=== PATIENT | male | born 1985 | race Caucasian/White ===

== ENCOUNTER 2023-09-24 11:13 | Emergency (ER) | payer OTHER, SELFPAY ==
[2023-09-24 11:16] VITALS: BP 93/45
[2023-09-24 13:14] LABS: % Basophils 0.6 % (0-2); % Eosinophils 4.5 % (0-6); % Immature Granulocytes 0.3 % (0-0.5); % Lymphocytes 26.6 % (20.5-51.1); % Monocytes 5.1 % (1.7-9.3); % Neutrophils 62.9 % (42.2-75.2); Absolute Eosinophils 0.2 10^3/uL (0-0.7); Absolute Lymphocytes 0.9 10^3/uL (1.2-3.4); Absolute Monocytes 0.2 10^3/uL (0.1-0.6); Absolute Neutrophils 2.2 10^3/uL (1.4-6.5); Hematocrit 34.9 % (39.0-52.0); Hemoglobin 12.4 g/dL (13.0-18.0); Mean Corp Hgb Conc. 35.5 g/dL (33.0-37.0); Mean Corpuscular Hgb 30.8 pg (27.0-31.0); Mean Corpuscular Volume 86.8 fL (80.0-94.0); Mean Platelet Volume 9.4 fL (7.4-10.4); Nucleated Red Blood Cells % 0 % (-); Platelet Count 188 10^3/uL (130-400); Red Blood Cell Count 4.02 10^6/uL (4.70-6.10); Red Cell Dist. Width 12.9 % (11.5-14.5); White Blood Cell Count 3.5 10^3/uL (4.8-10.8)
[2023-09-24 13:23] LABS: COVID-19 Antigen Negative (Negative)
[2023-09-24 13:47] LABS: ALT (SGPT) 59 U/L (0-50); AST (SGOT) 74 U/L (17-59); Albumin 3.9 g/dl (3.5-5.0); Alkaline Phosphatase 76 U/L (38-126); Amphetamines Negative (Negative); Barbiturates Negative (Negative); Benzodiazepines Negative (Negative); Blood Urea Nitrogen 12 mg/dl (9-20); Buprenorphine Negative (Negative); Calcium 9.3 mg/dl (8.4-10.2); Carbon Dioxide 25 mmol/L (22-30); Chloride 107 mmol/L (98-107); Cocaine Negative (Negative); Glucose 128 mg/dl (70-99); Marijuana Positive (Negative); Methadone Negative (Negative); Methamphetamines Negative (Negative); Opiates Negative (Negative); Phencyclidine Negative (Negative); Potassium 3.8 mmol/L (3.5-5.1); Sodium 144 mmol/L (135-145); Total Bilirubin 0.3 mg/dl (0.2-1.3); Tricyclic Antidepressants Negative (Negative); eGFR > 60.00
[2023-09-24 14:02] LABS: Alcohol 169 mg/dl
[2023-09-24 14:12] LABS: Blood Urea Nitrogen 12 mg/dl (9-20); Calcium 8.7 mg/dl (8.4-10.2); Carbon Dioxide 25 mmol/L (22-30); Chloride 111 mmol/L (98-107); Glucose 103 mg/dl (70-99); Potassium 3.5 mmol/L (3.5-5.1); Sodium 143 mmol/L (135-145); eGFR > 60.00
--- NOTE | 2023-09-24 14:14 | ED.GENMED ---
History of Present Illness
General
Chief Complaint: Alcohol Problem
Source: patient
Exam Limitations: none
Time Seen by Provider: 09/24/23 12:02
Travel History
Have you had any contact with someone who has COVID-19?: No
Do you have any symptoms of coronavirus? Fever > 100 degrees, chills, cough, shortness of breath, sore throat, loss of taste or smell, muscle aches, or headache?: No
History of Present Illness
History of Present Illness:
38-year-old male with history of alcoholism presents for help with his alcohol. The patient states he has been under some stress and began drinking again. He drinks vodka. His last drink was about 2 hours ago. Patient denies any other medical
complaints
Past History
Past History
ED Past Medical History: Psychiatric and Other (Chronic alcoholic)
ED Past Surgical History: None
Social History
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
Drug: None
Personal: Single
Living: homeless
Employment: Not employed
Family History
Family History: Other
Phy Exam
Physical Exam
Physical Exam:
CONSTITUTIONAL Vital signs reviewed, Patient alert and oriented to person, place and time. Well-appearing
HEAD atraumatic, normocephalic.
EYES eyelids normal to inspection, Extraocular muscles intact, Conjunctiva normal, Sclera normal.
NECK normal range of motion, Trachea midline, no jugular venous distention.
RESP no respiratory distress
BACK No obvious deformities
UPPER EXTREMITY Gross Range of motion normal, gross motor strength normal
LOWER EXTREMITY Gross range of motion normal, Gross motor strength normal
NEURO Speech normal, No focal motor deficits include, [place] coma scale 15, Memory normal, Cranial Nerves intact to screening exam.
SKIN Skin warm, dry, and normal in color.
PSYCHIATRIC Patient oriented to person place and time, Normal affect.
Scores
Withdrawal Assessment of Alcohol
Withdrawal Assessment Completed?: Not applicable
Course
Orders/Labs/Results
Orders:
Orders
09/24/23 12:31
0.9% Sodium Chloride 1000 ml [Nss] 1,000 ml IV BOLUS
09/24/23 12:57
Alcohol Urgent
COVID-19 Antigen Urgent
Source: Nasal Swab
Complete Blood Count/With Diff Urgent
Comprehensive Metabolic Panel Urgent
Urine Drug Abuse Screen Urgent
Date Specimen was Collected: 09/24/23
Time Specimen was Collected: 12:31
09/24/23 13:42
BMP [Basic Metabolic Panel] Urgent
Abnormal Lab Results
09/24/23 09/24/23
12:57 13:42
WBC 3.5 L 10^3/uL
(4.8-10.8)
RBC 4.02 L 10^6/uL
(4.70-6.10)
Hgb 12.4 L g/dL
(13.0-18.0)
Hct 34.9 L %
(39.0-52.0)
Absolute Lymphs (auto) 0.9 L 10^3/uL
(1.2-3.4)
Chloride 111 H mmol/L
(98-107)
Creatinine 0.6 L mg/dL
(0.7-1.3)
Glucose 128 H mg/dl 103 H mg/dl
(70-99) (70-99)
AST 74 H U/L
(17-59)
ALT 59 H U/L
(0-50)
Total Protein 6.0 L g/dl
(6.3-8.2)
U Marijuana (THC) Screen Positive H
(Negative)
09/24/23 12:57
09/24/23 13:42
Vital Signs
Initial and Last Documented VS:
Initial Vital Signs
Temp Pulse Resp BP Pulse Ox
98.4 F 90 16 93/45 96
09/24/23 11:16 09/24/23 11:16 09/24/23 11:16 09/24/23 11:16 09/24/23 11:16
Last Documented Vital Signs
Temp Pulse Resp BP Pulse Ox
98.4 F 72 16 93/45 98
09/24/23 11:16 09/24/23 14:02 09/24/23 11:16 09/24/23 11:16 09/24/23 14:02
MDM/Problems Addressed
MDM/Problems Addressed:
Chronic alcoholism, acute alcohol intoxication
*Pulse Oximetry
Patient hypoxic: no
*Critical Care Note
Total Time (30-74mins, 75-104mins- exclusive of procedures): Not Applicable
Data Reviewed
Source: patient
Prescriptions/Medications Considered But Not Given:
Considered Ativan patient does not appear in withdrawal
Patient Management
Discussion with other providers: Other (Case discussed with Amanda boyd and they are able to find placement for him with [facility])
ED Attending Note
-
Portions of this chart may have been created with voice recognition software.� Occasional wrong word or��sound alike� substitutions may have occurred due to the inherent limitations of voice recognition software.
Discharge Plan
Departure
Patient Disposition: Acute Rehab Facility
Date of Disposition: 09/24/23
Time of Disposition: 14:18
Discharge Problem:
Acute alcoholism
Instructions: Drug Misuse and Addiction (DC)
Referrals:
NONE,* [Family Provider] -
Interventions
Interventions:
*Risk Screen - Suicide Last Done: 09/24/23 11:16
*General Assessment Last Done: 09/24/23 11:16
*Neglect/Abuse Screening Last Done: 09/24/23 11:16
ED- Fall Risk Assessment Last Done: 09/24/23 14:59
*ED COVID-19 Vaccine History Last Done: 09/24/23 11:16
*Nursing Disposition Last Done: 09/24/23 14:59
ED- Neurological Assessment Last Done: 09/24/23 14:59
ED-Psychological Assessment Last Done: 09/24/23 14:59
Discharge Date and Time
Discharge Date/Time: 09/24/23 15:01
Print Language: MAORI
[2023-09-24] MEDS: NSS 1000 IV (14:29)
== END 2023-09-24 15:01 ==
LOC: EMR 11:13
PROVIDERS: EMERGENCY PHYSICIAN Emergency Medicine
DX: F10.229 Alcohol dependence with intoxication, unspecified (principal)
CPT/HCPCS: 99285; 96360; 80048; 80053; 80306; 82077; 85025; 87811

== ENCOUNTER 2023-09-24 18:31 | Emergency (ER) | payer OTHER, SELFPAY ==
[2023-09-24 18:35] VITALS: BP 107/50
[2023-09-24 20:07] VITALS: BP 106/55
--- NOTE | 2023-09-24 20:15 | ED.GENMED ---
History of Present Illness
General
Chief Complaint: Alcohol Problem
Source: patient
Exam Limitations: none
Time Seen by Provider: 09/24/23 20:13
Travel History
Have you had any contact with someone who has COVID-19?: No
Do you have any symptoms of coronavirus? Fever > 100 degrees, chills, cough, shortness of breath, sore throat, loss of taste or smell, muscle aches, or headache?: No
History of Present Illness
History of Present Illness:
See MDM
Past History
Past History
ED Past Medical History: Psychiatric and Other (Chronic alcoholic)
ED Past Surgical History: None
Social History
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
Drug: None
Personal: Single
Living: homeless
Employment: Not employed
Family History
Family History: Other
Phy Exam
Physical Exam
Physical Exam:
See MDM
Scores
Withdrawal Assessment of Alcohol
Withdrawal Assessment Completed?: Not applicable
Course
Orders/Labs/Results
Orders:
Orders
09/24/23 20:19
Alcohol Urgent
Vital Signs
Initial and Last Documented VS:
Initial Vital Signs
Temp Pulse Resp BP Pulse Ox
98.8 F 88 18 107/50 93
09/24/23 18:35 09/24/23 18:35 09/24/23 18:35 09/24/23 18:35 09/24/23 18:35
Last Documented Vital Signs
Temp Pulse Resp BP Pulse Ox
98.8 F 88 18 97/46 92
09/24/23 18:35 09/24/23 18:35 09/24/23 18:35 09/25/23 01:00 09/24/23 20:11
MDM/Problems Addressed
Differential Diagnosis Includes:
HPI and MDM Narrative:
38-year-old male presenting for alcohol intoxication. Patient was seen earlier in the day and was seen by DORY. He was set up for transport to rehab. However, patient left after he went outside and police found him intoxicated on the floor.
Patient admits to drinking alcohol again
Will recheck alcohol level and discuss case with [facility]. No evidence of trauma on exam
Physical exam
General: Lying in bed comfortably. Sleeping. Wakes up to verbal stimuli
HEENT: protecting airway
Neck: supple
CV: No evidence of cyanosis
Resp: No accessory muscle use
Abd: Non-distended
Extremities: No deformities
Neuro: alert. Appears clinically intoxicated
Psych: Normal affect
Skin: Intact
Problems Addressed including Acute and Chronic Conditions affecting care:
1. Alcohol intoxication
Acuity: acute on chronic
Prognosis: stable
Details: Will repeat alcohol level and discuss case with DORY
Updates
Alcohol level increased to 279. This confirms that patient left the emergency department and started drinking again. Will have [facility] reevaluate once he is no longer clinically intoxicated
Differential Diagnosis (but not limited to): Alcohol intoxication, drug abuse
Testing considered: UDS
Drug therapy (if applicable): OTC meds, please see d/c instruction regarding Rx drugs
Amount and/or Complexity of Data Reviewed
Clinical info obtained from: Patient
External data reviewed: Multiple visits in the past for alcohol intoxication
Labs I independently reviewed (but not limited to): Elevated alcohol level
Radiology: N/A
Pulse Ox: not hypoxic
EKG independently reviewed: N/A
Flight Inspector: N/A
Critical Care: N/A
Risk of Complication:
Social Determinants of health: Good social support
Discussed with other providers: N/A
Escalation of Care includes Admit/Obs: Disposition pending [facility] evaluation and possible transportation to rehab
Occasional wrong word or 'sound a like' substitutions may have occurred due to the inherent limitations of voice recognition software. Read the chart carefully and recognize, using context, where substitutions have occurred.
*Critical Care Note
Total Time (30-74mins, 75-104mins- exclusive of procedures): Not Applicable
ED Attending Note
-
Portions of this chart may have been created with voice recognition software.� Occasional wrong word or��sound alike� substitutions may have occurred due to the inherent limitations of voice recognition software.
Discharge Plan
Departure
Patient Disposition: Acute Rehab Facility
Date of Disposition: 09/25/23
Time of Disposition: 02:56
Discharge Problem:
Alcohol use disorder
Referrals:
NONE,* [Family Provider] -
Interventions
Interventions:
*Risk Screen - Suicide Last Done: 09/24/23 19:16
*General Assessment Last Done: 09/24/23 19:16
*Neglect/Abuse Screening Last Done: 09/24/23 19:16
ED- Fall Risk Assessment Last Done: 09/24/23 19:16
*ED COVID-19 Vaccine History Last Done: 09/24/23 19:16
ED- Neurological Assessment Last Done: 09/24/23 19:16
ED-Psychological Assessment Last Done: 09/24/23 19:16
Discharge Date and Time
Print Language: BELARUSIAN
[2023-09-24 20:45] LABS: Alcohol 279 mg/dl
[2023-09-24 21:00] VITALS: BP 93/44
[2023-09-24 22:00] VITALS: BP 94/50
[2023-09-24 23:00] VITALS: BP 92/52
[2023-09-25] VITALS: BP 103/57
[2023-09-25 01:00] VITALS: BP 97/46
== END 2023-09-25 06:09 ==
LOC: EMR 18:31
PROVIDERS: EMERGENCY PHYSICIAN Student in an Organized Health Care Education/Training Program
DX: F10.10 Alcohol abuse, uncomplicated (principal); Y90.8 Blood alcohol level of 240 mg/100 ml or more
CPT/HCPCS: 82077; 99285

== ENCOUNTER 2024-08-31 15:36 | Emergency (ER) | payer SELFPAY ==
[2024-08-31 15:36] VITALS: BMI 26.4
[2024-08-31 15:37] VITALS: BP 118/74
[2024-08-31 16:15] VITALS: BP 132/72
[2024-08-31 16:30] VITALS: BP 116/61
--- NOTE | 2024-08-31 16:34 | EDRN ---
STEPAN (Jamal) contacted for pt. Will have Stephanie call back to interview pt on his private cell.
[2024-08-31 17:13] LABS: % Basophils 0.9 % (0-2); % Eosinophils 2.3 % (0-6); % Immature Granulocytes 0.4 % (0-0.5); % Lymphocytes 32.7 % (20.5-51.1); % Monocytes 5.3 % (1.7-9.3); % Neutrophils 58.4 % (42.2-75.2); Absolute Basophils 0.1 10^3/uL (0-0.2); Absolute Eosinophils 0.1 10^3/uL (0-0.7); Absolute Lymphocytes 1.8 10^3/uL (1.2-3.4); Absolute Monocytes 0.3 10^3/uL (0.1-0.6); Absolute Neutrophils 3.3 10^3/uL (1.4-6.5); Hematocrit 39.9 % (39.0-52.0); Hemoglobin 13.8 g/dL (13.0-18.0); Mean Corp Hgb Conc. 34.6 g/dL (33.0-37.0); Mean Corpuscular Hgb 30.7 pg (27.0-31.0); Mean Corpuscular Volume 88.9 fL (80.0-94.0); Mean Platelet Volume 9.8 fL (7.4-10.4); Nucleated Red Blood Cells % 0 % (-); Platelet Count 218 10^3/uL (130-400); Red Blood Cell Count 4.49 10^6/uL (4.70-6.10); Red Cell Dist. Width 13.1 % (11.5-14.5); White Blood Cell Count 5.6 10^3/uL (4.8-10.8)
[2024-08-31 17:16] LABS: Venous Blood Gas B.E. 0.8 mmol/L (-4 to +4); Venous Blood Gas HCO3 26.6 mmol/L (22-27); Venous Blood Gas pCO2 46 mmHg (35-48); Venous Blood Gas pH 7.37 (7.32-7.43); Venous Blood Gas pO2 140 mmHg (30-50)
[2024-08-31 17:24] LABS: Venous Blood Gas O2 Sat % 99.1 %
--- NOTE | 2024-08-31 17:26 | ED.GENMED ---
History of Present Illness
General
Chief Complaint: Alcohol Problem
Source: patient and family
Exam Limitations: none
Time Seen by Provider: 08/31/24 16:08
Nursing documentation reviewed up to this point in time: agreed with
History of Present Illness
History of Present Illness:
39-year-old male presenting to the emergency department today with concerns of alcohol abuse seeking detox. Last drink was 6 hours prior to arrival to the emergency department. 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
He claims that he is had withdrawal before but denies any history of withdrawal seizures or delirium tremens. Currently denies any chest pain shortness of breath nausea vomiting numbness weakness. Claims that he feels that he might be starting to
have a mild tremor.
Past History
Past History
ED Past Medical History: Psychiatric and Other (Chronic alcoholic)
ED Past Surgical History: None
Social History
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
Drug: None
Personal: Single
Living: homeless
Employment: Not employed
Family History
Family History: Other
Review of Systems
Review of Systems
Allergies reviewed?: Yes
All Other Systems: ROS reviewed and negative except as documented in HPI and ROS
Phy Exam
Physical Exam
Physical Exam:
GENERAL: Alert , in no apparent distress
EYE: pupils equal and reactive
NECK: Supple, no significant adenopathy.
ENT: o/p clr, mmm.
CARDIAC: Regular rate and rhythm .
LUNGS: Clear breath sounds bilaterally, no acute respiratory distress, no wheezes/rales/rhonchi
ABDOMEN: Soft, without focal tenderness, no r/g, no cvat
NEUROLOGICAL: Alert and oriented, no focal neuro deficits
SKIN: Warm and dry, skin intact.
MUSCULOSKELETAL: No edema, well perfused.
PSYCH: Normal and appropriate interaction.
Scores
Withdrawal Assessment of Alcohol
Withdrawal Assessment Completed?: Yes
Nausea and Vomiting: No nausea and no vomiting
Tactile Disturbances: None
Tremor: No tremor
Auditory Disturbances: Not present
Paroxysmal Sweats: No sweat visible
Visual Disturbances: Not present
Anxiety: Mild anxiety
Headache, Fullness in Head: Not present
Agitation: Normal activity
Orientation and clouding of sensorium: Oriented and can do serial additions
Total CIWA Score: 1
Alcohol Withdrawal Medication Recommendation: Equal to MSAS Score 0-4. Monitor & re-assess q2hrs, NO MEDICATION NEEDED
Course
Orders/Labs/Results
Orders:
Orders
08/31/24 17:03
CBC/With Diff [Complete Blood Count/With Diff] Urgent
CMP [Comprehensive Metabolic Panel] Urgent
Venous Blood Gas Urgent
%Oxygen/Room Air: 98
Abnormal Lab Results
08/31/24
17:03
RBC 4.49 L 10^6/uL
(4.70-6.10)
VBG pO2 140 H mmHg
(30-50)
Chloride 108 H mmol/L
(98-107)
Glucose 105 H mg/dl
(70-99)
08/31/24 17:03
08/31/24 17:03
Vital Signs
Initial and Last Documented VS:
Initial Vital Signs
Temp Pulse Resp BP Pulse Ox
98.6 F 71 18 118/74 96
08/31/24 15:37 08/31/24 15:37 08/31/24 15:37 08/31/24 15:37 08/31/24 15:37
Last Documented Vital Signs
Temp Pulse Resp BP Pulse Ox
98 F 71 12 118/71 99
08/31/24 18:00 08/31/24 18:00 08/31/24 18:00 08/31/24 18:00 08/31/24 18:00
MDM/Problems Addressed
MDM/Problems Addressed:
39-year-old male presenting to the emergency department today with concerns of alcohol abuse seeking detox. Here vital signs are normal labs unremarkable. Patient seeking potential placement. CIWA score is low during my initial assessment.
Patient pending care's recommendation. Here labs unremarkable patient no distress. Apparently after I left my shift patient eloped from the ER. Patient is not on 302. He was during his stay here offered resources.
*Critical Care Note
Total Time (30-74mins, 75-104mins- exclusive of procedures): Not Applicable
ED Attending Note
-
Portions of this chart may have been created with voice recognition software.� Occasional wrong word or��sound alike� substitutions may have occurred due to the inherent limitations of voice recognition software.
Discharge Plan
Departure
Patient Disposition: Elopement
Prescriptions:
No Action
No Current Medications
0
Referrals:
Kwabena August DO [Family Provider] -
Interventions
Interventions:
*Risk Screen - Suicide Last Done: 08/31/24 15:39
*General Assessment Last Done: 08/31/24 15:39
*Neglect/Abuse Screening Last Done: 08/31/24 15:39
*ED- Fall Risk Assessment Last Done: 08/31/24 16:22
*ED COVID-19 Vaccine History Last Done: 08/31/24 18:46
*Nursing Disposition Last Done: 08/31/24 19:08
ED- Neurological Assessment Last Done: 08/31/24 16:22
ED-Psychological Assessment Last Done: 08/31/24 16:22
Discharge Date and Time
Discharge Date/Time: 08/31/24 19:10
Print Language: TAMAZIGHT
[2024-08-31 17:39] LABS: ALT (SGPT) 43 U/L (0-50); AST (SGOT) 43 U/L (17-59); Alkaline Phosphatase 78 U/L (38-126); Blood Urea Nitrogen 15 mg/dl (9-20); Calcium 9.4 mg/dl (8.4-10.2); Carbon Dioxide 24 mmol/L (22-30); Chloride 108 mmol/L (98-107); Estimated Creatinine Clearance 122 ml/min; Glucose 105 mg/dl (70-99); Potassium 3.9 mmol/L (3.5-5.1); Sodium 144 mmol/L (135-145); Total Bilirubin 0.4 mg/dl (0.2-1.3); Total Protein 7.1 g/dl (6.3-8.2); eGFR > 60.00
--- NOTE | 2024-08-31 17:39 | EDRN ---
Called [facility] to call pt for interview.
[2024-08-31 18:00] VITALS: BP 118/71
--- NOTE | 2024-08-31 18:42 | EDRN ---
Pt not in room, called pts phone, no answer. Called pts father and he states he spoke to pt 10 minutes ago and that he stated he was going to [place] and reports he was possibly going to smoke a cigarette. Security looked for pt on cameras, no
sighting. This RN walked around the outside to look for pt along with 2 others RN's, no sightings.
--- NOTE | 2024-08-31 19:01 | EDRN ---
[place] police radio room called, this RN asked them to locate pt and have IV removed.
--- NOTE | 2024-08-31 19:52 | EDRN ---
[place] police are actively looking for pt in local bars to have EMS removed IV if it remains.
--- NOTE | 2024-08-31 20:07 | EDRN ---
[facility] bringing pt back to ER after pt was found in town.
== END 2024-08-31 19:10 | disposition left against medical advice (07) ==
LOC: EMR 15:36
PROVIDERS: Physician Assistant; EMERGENCY PHYSICIAN Student in an Organized Health Care Education/Training Program; FAMILY PHYSICIAN Family Medicine
DX: F10.10 Alcohol abuse, uncomplicated (principal); Z59.00 Homelessness unspecified; Z53.29 Procedure and treatment not carried out because of patient's decision for other reasons
CPT/HCPCS: 99283; 80053; 82805; 85025

== ENCOUNTER 2024-08-31 20:12 | Emergency (ER) | payer SELFPAY ==
[2024-08-31 20:18] VITALS: BP 141/74
--- NOTE | 2024-08-31 20:30 | ED.GENMED ---
History of Present Illness
General
Chief Complaint: Alcohol Problem
Time Seen by Provider: 08/31/24 20:22
History of Present Illness
History of Present Illness:
Patient presents to the emergency department with alcohol intoxication and requesting detox. Was seen earlier in the emergency department for alcohol use disorder. He was being evaluated for inpatient detox when he eloped from the emergency
department. He states that he went to go drinking and now is back in the emergency department. He is interested in detox still. Denies any injuries or pain anywhere
Past History
Past History
ED Past Medical History: Psychiatric and Other (Chronic alcoholic)
ED Past Surgical History: None
Social History
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
Drug: None
Personal: Single
Living: homeless
Employment: Not employed
Family History
Family History: Other
Phy Exam
Physical Exam
Physical Exam:
GENERAL APPEARANCE: NAD, well developed/ well nourished, no external signs of trauma
EYES lids/conjunctiva normal
EARS/NOSE/THROAT Mucous membranes moist, uvula midline without oral pharyngeal erythema, exudate or swelling
HEAD/NECK normocephalic atraumatic, neck is supple.
RESPIRATORY respiratory effort normal, speaks in full sentences, no accessory muscle use. Lungs clear to auscultation without rhonchi, wheezes, rales
CARDIAC Regular rate and rhythm, no edema.
ABDOMINAL Soft, ND/NT
MUSCLES/EXTREMITIES No abnormal range of motion, no swelling.
SKIN Warm, pink and dry. No rashes
NEUROLOGICAL Speech is slurred but appropriate. Normal level of consciousness. 5/5 strength in all extremities.
PSYCH Normal mood and affect. Judgement/competence is appropriate
Scores
Withdrawal Assessment of Alcohol
Withdrawal Assessment Completed?: Not applicable
Course
Vital Signs
Initial and Last Documented VS:
Initial Vital Signs
Temp Pulse Resp BP Pulse Ox
98 F 84 20 141/74 99
08/31/24 20:18 08/31/24 20:18 08/31/24 20:18 08/31/24 20:18 08/31/24 20:18
Last Documented Vital Signs
Temp Pulse Resp BP Pulse Ox
98 F 78 16 118/74 99
08/31/24 21:40 08/31/24 21:40 08/31/24 21:40 08/31/24 21:40 08/31/24 21:40
*Critical Care Note
Total Time (30-74mins, 75-104mins- exclusive of procedures): Not Applicable
ED Attending Note
ED Attending Note
ED Attending Note:
patient discussed care with [facility]. Accepted to [facility] for inpatient detox. Patient ambulatory. Arranged transportation for patient to go to [facility].
-
Portions of this chart may have been created with voice recognition software.� Occasional wrong word or��sound alike� substitutions may have occurred due to the inherent limitations of voice recognition software.
Discharge Plan
Departure
Patient Disposition: Other
Discharge Problem:
Alcohol use disorder
Prescriptions:
No Action
No Current Medications
0
Referrals:
Kwabena August DO [Family Provider] -
Interventions
Interventions:
*Risk Screen - Suicide Last Done: 08/31/24 20:20
*General Assessment Last Done: 08/31/24 20:20
*Neglect/Abuse Screening Last Done: 08/31/24 20:20
*ED- Fall Risk Assessment Last Done: 08/31/24 20:20
*Nursing Disposition Last Done: 08/31/24 21:40
ED- Neurological Assessment Last Done: 08/31/24 20:20
ED-Psychological Assessment Last Done: 08/31/24 20:20
Discharge Date and Time
Discharge Date/Time: 08/31/24 21:42
Print Language: SAMMARINESE
--- NOTE | 2024-08-31 21:03 | EDRN ---
Assessment with [facility] intake completed. Staff at [facility] is attempting to get transport to their location.
[2024-08-31 21:40] VITALS: BP 118/74
== END 2024-08-31 21:42 ==
LOC: EMR 20:12
PROVIDERS: EMERGENCY PHYSICIAN Emergency Medicine; FAMILY PHYSICIAN Family Medicine
DX: F10.129 Alcohol abuse with intoxication, unspecified (principal); Y90.9 Presence of alcohol in blood, level not specified; Z59.00 Homelessness unspecified
CPT/HCPCS: 99285